=== PATIENT | female | born 1975 | race Hispanic/Latino ===

== ENCOUNTER 2018-02-09 09:31 | Emergency (ER) | payer MEDICAID ==
[2018-02-09 09:51] VITALS: BMI 26.6
[2018-02-09] MEDS ORDERED: Sodium Chloride 0.9% 1,000 ML IV STA (10:01)
--- NOTE | 2018-02-09 10:12 | ED PDOC ---
Arrival/HPI - General Chief Complaint: Female Genitourinary Time Seen by Provider: 02/09/18 09:39 Historian: Patient - History of Present Illness Narrative History of Present Illness (Text): 02/09/18 10:09 43-year-old female A2 presents today with vaginal bleeding since January 24 is a positive test and left-sided abdominal pain. Patient states she's been having vaginal spotting since January 24 but yesterday developed heavier red vaginal bleeding. Patient's complaining of some minimal left-sided abdominal pain. No vomiting with states the patient has been nauseous for the past 2 weeks. Patient denies urinary symptoms. No back pain. No chest pain or shortness of breath. Patient states she has been going through 1-2 pads for bleeding. Patient denies prior history of gonorrhea or chlamydia or any other STDs. Patient states she had her IUD removed in November and was trying to get . Past Medical History - Provider Review Nursing Documentation Reviewed: Yes - Travel History Have you recently traveled outside [place] w/in the past 3 mons?: No - Tetanus Immunization Tetanus Immunization: Unknown - Psychiatric Hx Substance Use: No - Surgical History Other/Comment: D & C - Anesthesia Hx Anesthesia: Yes Hx Anesthesia Reactions: No Hx Malignant Hyperthermia: No Family/Social History - Physician Review Nursing Documentation Reviewed: Yes Family/Social History: Unknown Family HX Smoking Status: Never Smoked Hx Alcohol Use: Yes Frequency of alcohol use: Socially Hx Substance Use: No Allergies/Home Meds Allergies/Adverse Reactions: Allergies codeine Adverse Reaction (Verified 02/09/18 10:00) VOMITING Review of Systems - Review of Systems Constitutional: absent: Fatigue, Fevers Respiratory: absent: SOB, Cough Cardiovascular: absent: Chest Pain, Palpitations Gastrointestinal: Abdominal Pain, Nausea. absent: Constipation, Diarrhea, Vomiting Genitourinary Female: Vaginal Bleeding. absent: Dysuria, Frequency, Hematuria Musculoskeletal: absent: Arthralgias, Back Pain, Neck Pain Skin: absent: Rash, Pruritis Neurological: absent: Headache, Dizziness Psychiatric: absent: Anxiety, Depression Physical Exam Vital Signs Reviewed: Yes Vital Signs Temp Pulse Resp BP Pulse Ox 02/09/18 09:50 98.5 F 87 16 112/72 99 02/09/18 09:47 98.5 F 87 16 112/72 98 Temperature: Afebrile Blood Pressure: Normal Pulse: Regular Respiratory Rate: Normal Appearance: Positive for: Well-Appearing, Non-Toxic, Comfortable Pain Distress: None Mental Status: Positive for: Alert and Oriented X 3 - Systems Exam Head: Present: Atraumatic Mouth: Present: Moist Mucous Membranes Neck: Present: Normal Range of Motion Respiratory/Chest: Present: Clear to Auscultation, Good Air Exchange. No: Respiratory Distress, Accessory Muscle Use Cardiovascular: Present: Regular Rate and Rhythm Abdomen: Present: Tenderness (minimal left lower pelvic tenderness). No: Distention, Peritoneal Signs, Rebound, Guarding Genitourinary/Pelvic Exam: Present: Normal External Genitalia, Vaginal Bleeding (minimal bleeding noted), Cervical os Closed, Other (chaparoned by Hannah STINSON RN). No: Vaginal Lesions, Adenexal Tenderness, Adenexal Mass, Cervical Motion Tendernes Back: Present: Normal Inspection. No: CVA Tenderness Upper Extremity: Present: Normal ROM Lower Extremity: Present: Normal ROM Neurological: Present: GCS=15 Skin: Present: Warm, Dry, Normal Color. No: Rashes Psychiatric: Present: Alert, Oriented x 3 Medical Decision Making ED Course and Treatment: 02/09/18 10:11 Patient is nontoxic well appearing in no distress. vital signs are stable. CBC: within normal limits CMP: within normal limits Beta hC,940 TYPE AND SCREEN: O+ Urinalysis: positive blood, trace leukocytes Ultrasound: Findings: The uterus measures approximately 9.7 x 6.3 x 6.9 cm. Cervix length measures approximately 3.9 cm. Nabothian cyst. There is a single intrauterine fetus present. 5 mm yolk sac. The gestational sac measures 3.1 cm and is compatible with a gestational age of 8 weeks 0 days. The crown-rump length measures 0.7 cm and is compatible with a gestational age of 6 weeks 4 days. There is heart motion which measured 153.3 BPM. The right ovary measures 3.7 x 1.9 x 1.6 cm. The left ovary measures 3.2 x 1.5 x 3.2. Blood flow was demonstrated to both ovaries. Impression: Live single intrauterine with estimated gestational age 8 weeks 0 days by gestational sac calculation and 6 weeks 4 days by crown-rump length calculation. heart rate 153.3 bpm. Advise an anomaly screen at 16-18 weeks gestational age patient reassessment: Patient is nontoxic well-appearing in no distress his stable vital signs I discussed all results in depth with the patient advised follow-up with her data communications engineer within the next 2 days. Patient states she has an appointment scheduled with her data communications engineer for tomorrow. Patient was advised immediate return if symptoms worsen persist or if new concerning symptoms develop. Stressed the importance of close follow-up with her data communications engineer Patient verbalizes understanding of discharge instructions and need for immediate followup. all aspects of this case were discussed the attending of record. Impression: threatened , uti Tylenol every 4 hours as needed for pain take prental vitamins daily macrobid; 1 tablet twice daily x 10 days Increase fluids Followup with the umbrella finisher within the next 2 days Return immediately if symptoms worsen persist or if new symptoms develop: High fevers, heavy bleeding, severe abdominal pain, vomiting, diarrhea, dizziness or weakness or any other concerning symptoms develop. Reassessment Condition: Re-examined, Improved - RAD Interpretation Radiology Orders: 02/09/18 10:01 TRANSVAGINAL [US] Stat - Medication Orders Current Medication Orders: Sodium Chloride (Sodium Chloride 0.9%) 1,000 mls @ 999 mls/hr IV .Q1H1M STA Stop: 02/09/18 11:01 Disposition/Present on Arrival - Present on Arrival Any Indicators Present on Arrival: No History of DVT/PE: No History of Uncontrolled Diabetes: No Urinary Catheter: No History of Decub. Ulcer: No History Surgical Site Infection Following: None - Disposition Have Diagnosis and Disposition been Completed?: Yes Diagnosis: Threatened , UTI (urinary tract infection) Disposition: HOME/ ROUTINE Disposition Time: 12:00 Patient Plan: Discharge Patient Problems: Current Active Problems Problem Status Onset Threatened Acute UTI (urinary tract infection) Acute Condition: GOOD Discharge Instructions (ExitCare): Threatened Miscarriage (DC) Additional Instructions: Tylenol every 4 hours as needed for pain take prental vitamins daily macrobid; 1 tablet twice daily x 10 days Increase fluids Followup with the umbrella finisher within the next 2 days Return immediately if symptoms worsen persist or if new symptoms develop: High fevers, heavy bleeding, severe abdominal pain, vomiting, diarrhea, dizziness or weakness or any other concerning symptoms develop. Prescriptions: Nitrofurantoin Macrocrystals [Macrobid] 100 mg PO BID #20 cap Pnv No.95/Ferrous Fum/Folic AC [ Tablet] 1 each PO DAILY #30 tablet Referrals: Cele Hanley MD [Medical Doctor] - [facility] [Outside] - Follow up with primary [facility] [Outside] - Follow up with primary Mela Pedersen MD [Medical Doctor] - Follow up with primary Forms: [employer] (South Korean), WORK NOTE
[2018-02-09 10:22] LABS: URINE BILIRUBIN NEGATIVE (NEGATIVE); URINE BLOOD LARGE (NEGATIVE); URINE GLUCOSE (UA) NEGATIVE (NEGATIVE); URINE LEUKOCYTE ESTERASE TRACE Leu/uL (NEGATIVE); URINE PROTEIN NEGATIVE mg/dL (<30 mg/dL); URINE UROBILINOGEN 0.2 E.U./dL (<1 E.U./dL)
[2018-02-09 10:23] LABS: URINE APPEARANCE CLEAR (CLEAR); URINE COLOR YELLOW (YELLOW)
[2018-02-09 10:35] LABS: BASO # 0.02 K/mm3 (0.0-2.0); BASO % 0.2 % (0.0-3.0); EOS # 0.1 (0.0-0.7); EOS % 0.7 % (1.5-5.0); GRAN # 5.52 (1.4-6.5); GRAN % 68.7 % (50.0-68.0); HEMOGLOBIN 13.1 g/dL (12.0-16.0); LYMPH # 1.9 (1.2-3.4); LYMPH % 23.3 % (22.0-35.0); MEAN CELL VOLUME 88.8 fl (80.0-105.0); MEAN CORPUSCULAR HEMOGLOBIN 30.5 pg (25.0-35.0); MEAN CORPUSCULAR HGB CONC 34.3 g/dl (31.0-37.0); MEAN PLATELET VOLUME 10.1 fl (7.0-11.0); MONO # 0.6 (0.1-0.6); MONO % 7.1 % (1.0-6.0); RBC 4.3 10^6/uL (3.5-6.1); RED CELL DISTRIBUTION WIDTH 12.5 % (11.5-14.5)
[2018-02-09 10:37] LABS: URINE BACTERIA SMALL (NEG); URINE EPITHELIAL CELLS MANY /hpf (0-5); URINE RBC 0 - 2 /hpf (0-2)
[2018-02-09 10:45] LABS: INR 1.09; PARTIAL THROMBOPLASTIN TIME 27.2 Seconds (25.1-36.5); PROTHROMBIN TIME 12.6 SECONDS (9.4-12.5)
[2018-02-09 10:58] LABS: ALB/GLOB RATIO 1.3 (1.1-1.8); ALBUMIN 4.4 g/dL (3.0-4.8); ALT/SGPT 28 U/L (7-56); AST/SGOT 20 U/L (14-36); BLOOD UREA NITROGEN 9 mg/dL (7-21); CALCIUM 9.2 mg/dL (8.4-10.5); GFR NON-AFRICAN AMERICAN > 60
--- NOTE | 2018-02-09 12:08 | US ---
Date of service: 02/09/2018 Indication: vaginal bleeding Comparison: None available Technique: Ob transvaginal ultrasound Findings: The uterus measures approximately 9.7 x 6.3 x 6.9 cm. Cervix length measures approximately 3.9 cm. Nabothian cyst. There is a single intrauterine fetus present. 5 mm yolk sac. The gestational sac measures 3.1 cm and is compatible with a gestational age of 8 weeks 0 days. The crown-rump length measures 0.7 cm and is compatible with a gestational age of 6 weeks 4 days. There is heart motion which measured 153.3 BPM. The right ovary measures 3.7 x 1.9 x 1.6 cm. The left ovary measures 3.2 x 1.5 x 3.2. Blood flow was demonstrated to both ovaries. Impression: Live single intrauterine with estimated gestational age 8 weeks 0 days by gestational sac calculation and 6 weeks 4 days by crown-rump length calculation. heart rate 153.3 bpm. Advise an anomaly screen at 16-18 weeks gestational age
[2018-02-09 13:44] VITALS: BP 129/87; PULSE 88; RESP 18; TEMP 98.1; O2SAT 99
== END 2018-02-09 13:50 | disposition home or self-care (01) ==
LOC: ED 09:31 → MERGE 09:31 → ED 13:50
DX: O20.0 Threatened abortion (principal); O23.41 Unspecified infection of urinary tract in pregnancy, first trimester; Z3A.08 8 weeks gestation of pregnancy
CPT/HCPCS: 76817; 80053; 81001; 84702; 85025; 85610; 85730; 86850; 86900; 87086; 99283; J7030

== ENCOUNTER 2018-02-15 09:59 | Emergency (ER) | payer MEDICAID ==
[2018-02-15 09:59] VITALS: BMI 26.6
--- NOTE | 2018-02-15 10:41 | ED PDOC ---
Arrival/HPI - General Chief Complaint: Female Genitourinary Time Seen by Provider: 02/15/18 10:22 Historian: Patient - History of Present Illness Narrative History of Present Illness (Text): 02/15/18 10:38 43 year old female, whose past medical history includes a prior miscarriage, who presents to the Emergency department complaining of vaginal bleeding and abdominal cramps x 1 week. Patient states she is currently . Patient was seen here last week for vaginal bleeding, where was confirmed and a transvaginal US was performed. Results were normal and showed the patient was 8 weeks . Patient states, what looked like a clot, came out last night. Patient states bleeding has been light, only using 1 pad. Patient states she is not currently bleeding. Patient denies any fever, chills, chest pain, shortness of breath, nausea, vomiting, diarrhea, back pain, neck pain, headache, dizziness, or any other complaints. Time/Duration: 1 week Symptom Onset: Gradual Symptom Course: Unchanged Activities at Onset: Light Context: Home Past Medical History - Provider Review Nursing Documentation Reviewed: Yes - Infectious Disease Hx of Infectious Diseases: None - Tetanus Immunization Tetanus Immunization: Unknown - Reproductive Menopause: No - Cardiac Hx Cardiac Disorders: No - Psychiatric Hx Substance Use: No - Surgical History Other/Comment: D & C - Anesthesia Hx Anesthesia: Yes Hx Anesthesia Reactions: No Hx Malignant Hyperthermia: No Family/Social History - Physician Review Nursing Documentation Reviewed: Yes Family/Social History: Unknown Family HX Smoking Status: Never Smoked Hx Alcohol Use: Yes Hx Substance Use: No Allergies/Home Meds Allergies/Adverse Reactions: Allergies codeine Adverse Reaction (Verified 02/10/18 09:01) VOMITING Review of Systems - Physician Review All systems were reviewed & negative as marked: Yes Physical Exam - Physical Exam Narrative Physical Exam (Text): 02/15/18 10:41 Gen: NAD, cooperative, well appearing, non-toxic. Head: NCAT. EYES: PERRL, EOMI, conjunctiva clear, EARS: TMs clear MOUTH: moist MM, posterior pharynx without erythema or exudate, uvula midline. CV: (+) S1S2, RRR, no M/G/R LUNGS: CTA B/L, No W/R/R, good air movement Abd: Soft, NTTP, no guarding, rebound or rigidity. Neuro: AAO x 3, GCS 15, CN 2-12 intact, motor and sensory grossly intact, 5/5 muscle strength B/L UE's and LE's. ext: no cyanosis or edema Vital Signs Reviewed: Yes Vital Signs Temp Pulse Resp BP Pulse Ox 02/15/18 10:11 98.6 F 80 18 129/81 98 Temperature: Afebrile Blood Pressure: Normal Pulse: Regular Respiratory Rate: Normal Appearance: Positive for: Well-Appearing, Non-Toxic, Comfortable Pain Distress: None Mental Status: Positive for: Alert and Oriented X 3 Medical Decision Making ED Course and Treatment: 02/15/18 10:41 Impression: 43 year old female presents to the Emergency department complaining of vaginal bleeding and abdominal cramps. Plan: -- HCG, Quantitative -- Labs -- Pelvic Exam -- Transvaginal US -- Reassess and disposition Progress Notes: 02/15/18 14:29 Transvaginal US reviewed, shows: IMPRESSION: Eight weeks 4 days live intrauterine gestation. Small subchorionic hemorrhage finding not seen previously. Follow-up recommended. 02/15/18 14:41 Upon reevaluation, US results were discussed. Pt has land lease information clerk appointment in 2 weeks, pt told to call and see if they want to see her earlier. Pt told to come back if symptoms worsen. - Scribe Statement The provider has reviewed the documentation as recorded by the Scribe Catrina Srivastava All medical record entries made by the Scribe were at my direction and personally dictated by me. I have reviewed the chart and agree that the record accurately reflects my personal performance of the history, physical exam, medical decision making, and the department course for this patient. I have also personally directed, reviewed, and agree with the discharge instructions and disposition. Disposition/Present on Arrival - Present on Arrival Any Indicators Present on Arrival: No History of DVT/PE: No History of Uncontrolled Diabetes: No Urinary Catheter: No History of Decub. Ulcer: No - Disposition Have Diagnosis and Disposition been Completed?: Yes Diagnosis: Threatened Disposition: HOME/ ROUTINE Disposition Time: 14:47 Patient Plan: Discharge, Other Condition: STABLE Discharge Instructions (ExitCare): Threatened Miscarriage (DC) Referrals: Liliam Gregg DO [Primary Care Provider] - Follow up with primary Forms: [email or web address] (Haitian)
[2018-02-15 12:05] LABS: BASO # 0.02 K/mm3 (0.0-2.0); BASO % 0.2 % (0.0-3.0); EOS % 0.3 % (1.5-5.0); GRAN # 6.43 (1.4-6.5); HEMOGLOBIN 12.4 g/dL (12.0-16.0); LYMPH # 1.8 (1.2-3.4); LYMPH % 20.5 % (22.0-35.0); MEAN CELL VOLUME 88.5 fl (80.0-105.0); MEAN CORPUSCULAR HEMOGLOBIN 30.5 pg (25.0-35.0); MEAN CORPUSCULAR HGB CONC 34.4 g/dl (31.0-37.0); MEAN PLATELET VOLUME 9.8 fl (7.0-11.0); MONO # 0.6 (0.1-0.6); RBC 4.07 10^6/uL (3.5-6.1); RED CELL DISTRIBUTION WIDTH 12.3 % (11.5-14.5); WHITE BLOOD COUNT 8.9 10^3/uL (4.5-11.0)
--- NOTE | 2018-02-15 14:19 | US ---
Date of service: 02/15/2018 PROCEDURE: First trimester ultrasound HISTORY: preg bleeding COMPARISON: 02/09/2018 TECHNIQUE: Standard protocol for this study/examination. FINDINGS: LMP: 01/24/2018 as stated on a prior ultrasound. However this is likely not a reliable date. Prior examinations from the current : 02/09/2018 TECHNIQUE: Real-time 2D imaging, duplex and color Doppler. FINDINGS: Cardiac activity: Present Rate: 155 BPM Measurements: [place] rump length: 2.29 cm Gestational age based on CRL 9 weeks Gestational age 8 weeks 1 day based on gestational sac measurement 3.15 cm Gestational age derived from LMP: Cannot be ascertained based in the absence of a reliable/ known LMP SCOTT based on LMP: Cannot be ascertained based in the absence of a reliable/ known LMP SCOTT based on biometry: 09/23/2018 Gestational concordance cannot be determined. Yolk sac identified Cervix: No Cervical abnormalities: Negative examination for cervical dilatation or effacement. Closed cervix measuring 3.9 cm Subchorionic hemorrhage: None UTERUS: 5 x 7.1 x 8.0 cm. ADNEXA: Right: 1.8 x 2 x 3.0 cm. Normal Doppler arterial waveform documented. Left: 1.6 x 1.7 x 3.7 cm. Normal Doppler arterial waveform documented Fluid in the cul-de-sac: None Small subchorionic hemorrhage finding not seen previously. This is curvilinear, lentiform in appearance. IMPRESSION: Eight weeks 4 days live intrauterine gestation. Small subchorionic hemorrhage finding not seen previously. Follow-up recommended.
[2018-02-15 15:26] VITALS: BP 119/80; PULSE 72; TEMP 98.4; O2SAT 100
[2018-02-15 21:48] VITALS: RESP 18
== END 2018-02-15 15:10 | disposition home or self-care (01) ==
LOC: ED 09:59
DX: O20.0 Threatened abortion (principal); Z3A.08 8 weeks gestation of pregnancy

== ENCOUNTER 2018-03-06 15:20 | Emergency (ER) | payer MEDICAID, OTHER ==
[2018-03-06 15:41] VITALS: RESP 18; TEMP 98.4; O2SAT 97; BMI 26.3
[2018-03-06] MEDS ORDERED: Sodium Chloride 0.9% 1,000 ML IV STA (15:51)
--- NOTE | 2018-03-06 16:12 | ED PDOC ---
Arrival/HPI - General Chief Complaint: Female Genitourinary Time Seen by Provider: 03/06/18 15:24 Historian: Patient - History of Present Illness Narrative History of Present Illness (Text): 03/06/18 16:06 43yo female who present with complaint of vaginal bleeding. Patient states she is currently 12weeks and has been bleeding since January 24. States she was seen here twice last month for the bleeding and have seen her OB and was told that the bleeding is fine. States she started bleeding heavier today at 1500 and had blood clot. Denies abdominal pain, vomiting, dizziness, fever, chills, diaphoresis, diarrhea, any other complaint. Past Medical History - Provider Review Nursing Documentation Reviewed: Yes - Infectious Disease Hx of Infectious Diseases: None - Tetanus Immunization Tetanus Immunization: Unknown - Cardiac Hx Cardiac Disorders: No - Psychiatric Hx Substance Use: No - Surgical History Other/Comment: D & C. 5 pregnacies, 3 normal , 1 miscarriage. - Anesthesia Hx Anesthesia: Yes Hx Anesthesia Reactions: No Hx Malignant Hyperthermia: No Family/Social History - Physician Review Nursing Documentation Reviewed: Yes Family/Social History: Unknown Family HX Smoking Status: Never Smoked Hx Alcohol Use: No (not since .) Hx Substance Use: No Allergies/Home Meds Allergies/Adverse Reactions: Allergies codeine Adverse Reaction (Verified 03/06/18 15:43) VOMITING Review of Systems - Physician Review All systems were reviewed & negative as marked: Yes - Review of Systems Constitutional: Normal Eyes: Normal ENT: Normal Respiratory: Normal Cardiovascular: Normal Gastrointestinal: Normal Genitourinary Female: Vaginal Bleeding. absent: Dysuria, Frequency Musculoskeletal: Normal Skin: Normal Neurological: Normal Endocrine: Normal Hemo/Lymphatic: Normal Psychiatric: Normal Physical Exam Vital Signs Reviewed: Yes Vital Signs Temp Pulse Resp BP Pulse Ox 03/06/18 15:40 98.4 F 88 18 150/70 97 Temperature: Afebrile Blood Pressure: Normal Pulse: Regular Respiratory Rate: Normal Appearance: Positive for: Well-Appearing, Non-Toxic, Comfortable Pain Distress: None Mental Status: Positive for: Alert and Oriented X 3 - Systems Exam Head: Present: Atraumatic, Normocephalic Pupils: Present: PERRL Extroacular Muscles: Present: EOMI Conjunctiva: Present: Normal Mouth: Present: Moist Mucous Membranes Neck: Present: Normal Range of Motion Respiratory/Chest: Present: Clear to Auscultation, Good Air Exchange. No: Respiratory Distress, Accessory Muscle Use Cardiovascular: Present: Regular Rate and Rhythm, Normal S1, S2. No: Murmurs Abdomen: No: Tenderness, Distention, Peritoneal Signs Genitourinary/Pelvic Exam: Present: Cervical os Closed. No: Vaginal Bleeding (Very mild scanty blood in vault) Back: Present: Normal Inspection Upper Extremity: Present: Normal Inspection. No: Cyanosis, Edema Lower Extremity: Present: Normal Inspection. No: Edema Neurological: Present: GCS=15, CN II-XII Intact, Speech Normal Skin: Present: Warm, Dry, Normal Color. No: Rashes Psychiatric: Present: Alert, Oriented x 3, Normal Insight, Normal Concentration Medical Decision Making ED Course and Treatment: 03/06/18 17:31 43yo female present with complaint of heavier vaginal bleeding since this afternoon. Labs Transvaginal US 1L NS Labs was reviewed and unremarkable. Beta quant 97,775.00 Transvaginal US IMPRESSION: A single viable intrauterine gestation is identified with average ultrasonic age of 12 weeks 1 day based on mean CRL representing normal interval growth compared prior obstetric ultrasound 02/15/2018. Prior subchorionic hemorrhage not clearly evident. Clinical and sonographic follow-up recommended. 03/06/18 17:35 All result was DW the pt. She was strongly advised to f/u with OB - RAD Interpretation Radiology Orders: 03/06/18 15:50 TRANSVAGINAL [US] Stat - Medication Orders Current Medication Orders: Sodium Chloride (Sodium Chloride 0.9%) 1,000 mls @ 999 mls/hr IV .Q1H1M STA Stop: 03/06/18 16:51 Disposition/Present on Arrival - Present on Arrival Any Indicators Present on Arrival: No History of DVT/PE: No History of Uncontrolled Diabetes: No Urinary Catheter: No History of Decub. Ulcer: No History Surgical Site Infection Following: None - Disposition Have Diagnosis and Disposition been Completed?: Yes Diagnosis: Threatened Disposition: HOME/ ROUTINE Disposition Time: 17:25 Patient Plan: Discharge Patient Problems: Current Active Problems Problem Status Onset Threatened Acute Condition: STABLE Discharge Instructions (ExitCare): Threatened Miscarriage (DC) Additional Instructions: Follow up with your OB Return to ED for any new symptoms Referrals: Cy Gerard MD [Staff Provider] - Follow up with primary Forms: [employer] (Algerian)
[2018-03-06 16:39] LABS: BASO # 0.01 K/mm3 (0.0-2.0); BASO % 0.1 % (0.0-3.0); EOS # 0.1 (0.0-0.7); EOS % 0.5 % (1.5-5.0); GRAN # 8.31 (1.4-6.5); GRAN % 73.9 % (50.0-68.0); HEMOGLOBIN 12.3 g/dL (12.0-16.0); LYMPH # 2.3 (1.2-3.4); LYMPH % 20.6 % (22.0-35.0); MEAN CELL VOLUME 87.8 fl (80.0-105.0); MEAN CORPUSCULAR HEMOGLOBIN 30.1 pg (25.0-35.0); MEAN CORPUSCULAR HGB CONC 34.3 g/dl (31.0-37.0); MEAN PLATELET VOLUME 9.9 fl (7.0-11.0); MONO # 0.6 (0.1-0.6); MONO % 4.9 % (1.0-6.0); RBC 4.09 10^6/uL (3.5-6.1); RED CELL DISTRIBUTION WIDTH 12.6 % (11.5-14.5); WHITE BLOOD COUNT 11.2 10^3/uL (4.5-11.0)
[2018-03-06 16:43] LABS: ALB/GLOB RATIO 1.3 (1.1-1.8); ALBUMIN 4.4 g/dL (3.0-4.8); ALT/SGPT 29 U/L (7-56); AST/SGOT 18 U/L (14-36); BLOOD UREA NITROGEN 11 mg/dL (7-21); CALCIUM 9.8 mg/dL (8.4-10.5); GFR NON-AFRICAN AMERICAN > 60; INR 0.98; PARTIAL THROMBOPLASTIN TIME 24.4 Seconds (25.1-36.5); PROTHROMBIN TIME 11.2 SECONDS (9.4-12.5)
[2018-03-06 17:09] LABS: URINE BILIRUBIN NEGATIVE (NEGATIVE); URINE BLOOD MODERATE (NEGATIVE); URINE COLOR YELLOW (YELLOW); URINE GLUCOSE (UA) NEGATIVE (NEGATIVE); URINE LEUKOCYTE ESTERASE NEGATIVE Leu/uL (NEGATIVE); URINE PROTEIN NEGATIVE mg/dL (<30 mg/dL); URINE UROBILINOGEN 0.2 E.U./dL (<1 E.U./dL)
[2018-03-06 17:10] LABS: URINE APPEARANCE SL CLOUDY (CLEAR)
[2018-03-06 17:25] VITALS: BP 106/72; PULSE 78
[2018-03-06 17:30] LABS: HCG,QUALITATIVE URINE POSITIVE (NEGATIVE)
--- NOTE | 2018-03-06 17:32 | US ---
Date of service: 03/06/2018 PROCEDURE: OB Pelvic Ultrasound HISTORY: /bleeding LMP: Unknown, prior IUD removed 12/15/2017. COMPARISON: Prior ultrasound 02/15/2018 performed using transabdominal and transvaginal technique transvaginal technique indicated ultrasonic age of 9 weeks 0 days. FINDINGS: UTERUS: Gestational sac: Single intrauterine gestation. Heart rate: 176 bpm. age (Ultrasound estimated): 12 weeks 1 day based on mean CRL 5.59 cm. Gestational sac mean diameter 5.60 cm. Tish-gestational hemorrhage: None. However, marginal previa is suggested with the inferior margins of the developing placenta abutting the internal cervical os. No definitive hemorrhage appreciable at this time though previous ultrasound 02/15/2018 demonstrated small subchorionic hemorrhage superiorly. This is not appreciated currently. Date of delivery (Ultrasound estimated) : 09/19/2018. Uterus measures 11.4 x 9.3 x 9.6 cm. Normal in size and appearance. CERVIX: Measures 5.6 cm. Long and closed. No cervical abnormality seen. RIGHT OVARY: Measures 3.9 x 3.4 x 2.1 cm. No mass lesion. Normal flow. LEFT OVARY: Not identified. No suspicious adnexal mass or fluid collection appreciable. FREE FLUID: None. OTHER FINDINGS: None. IMPRESSION: A single viable intrauterine gestation is identified with average ultrasonic age of 12 weeks 1 day based on mean CRL representing normal interval growth compared prior obstetric ultrasound 02/15/2018. Prior subchorionic hemorrhage not clearly evident. Clinical and sonographic follow-up recommended.
== END 2018-03-06 18:13 | disposition home or self-care (01) ==
LOC: ED 15:20
DX: O20.0 Threatened abortion (principal); Z3A.12 12 weeks gestation of pregnancy
CPT/HCPCS: 76817; 80053; 81001; 84702; 84703; 85025; 85610; 85730; 86850; 86900; 96360; 99283; J7030